=== PATIENT | male | born 1955 | race Caucasian/White ===

== ENCOUNTER 2017-10-12 10:27 | Inpatient (IN) | payer OTHER ==
[2017-10-12] MEDS ORDERED: ALBUTEROL NEB SOL 2.5MG/3ML 1 VIAL SOL NEB PRN (11:42)
[2017-10-12 13:14] LABS: POTASSIUM 4.6 mMol/L (3.5-5.1)
[2017-10-12] MEDS: ENOXAPARIN 80 MG SOL SC SCH ×2 (14:45→23:40)
[2017-10-12] MEDS: SODIUM CHLORIDE 0.9% FLUSH 10 ML SOL IV SCH ×3 (14:47→21:52)
[2017-10-12] MEDS: FUROSEMIDE 20mg SOL IV SCH (15:25)
[2017-10-12] MEDS: NOVOLOG FLEXPEN SC SCH ×2 (16:52→21:53)
[2017-10-12] MEDS: METFORMIN HYDROCHLORIDE 500 MG TAB PO SCH (21:52)
[2017-10-13] MEDS: SODIUM CHLORIDE 0.9% FLUSH 10 ML SOL IV SCH ×3 (05:23→20:51)
[2017-10-13] MEDS: NOVOLOG FLEXPEN SC SCH ×4 (06:01→20:52)
[2017-10-13 07:32] LABS: CALCIUM 8.7 mg/dl (8.5-10.1); POTASSIUM 4.5 mMol/L (3.5-5.1)
[2017-10-13] MEDS ORDERED: GLIPIZIDE 5 MG TAB PO SCH (09:00)
[2017-10-13] MEDS ORDERED: ATENOLOL 25 MG TAB PO SCH (09:00)
[2017-10-13] MEDS: METFORMIN HYDROCHLORIDE 500 MG TAB PO SCH ×2 (09:51→20:52)
[2017-10-13] MEDS: GLIPIZIDE 5 MG TAB PO SCH ×2 (09:52→19:21)
[2017-10-13] MEDS: FUROSEMIDE 20mg SOL IV SCH ×3 (09:57→16:18)
[2017-10-13] MEDS: ATORVASTATIN 10 MG TAB PO SCH (09:57)
[2017-10-13] MEDS: LISINOPRIL 20 MG TAB PO SCH (10:14)
[2017-10-13] MEDS: ATENOLOL 25 MG TAB PO SCH (10:14)
[2017-10-13] MEDS: AMLODIPINE 5 MG TAB PO SCH (10:14)
[2017-10-13] MEDS: ENOXAPARIN 80 MG SOL SC SCH ×2 (12:27→23:45)
[2017-10-13 20:51] VITALS: O2SAT 97
[2017-10-14] MEDS: SODIUM CHLORIDE 0.9% FLUSH 10 ML SOL IV SCH ×3 (06:28→12:17)
[2017-10-14] MEDS: NOVOLOG FLEXPEN SC SCH ×2 (06:29→11:51)
[2017-10-14 08:32] VITALS: BP 152/75; PULSE 65; RESP 16; TEMP 97.5
[2017-10-14] MEDS: LISINOPRIL 20 MG TAB PO SCH (08:40)
[2017-10-14] MEDS: ATORVASTATIN 10 MG TAB PO SCH (08:40)
[2017-10-14] MEDS: FUROSEMIDE 20mg SOL IV SCH ×2 (08:41→12:19)
[2017-10-14] MEDS: METFORMIN HYDROCHLORIDE 500 MG TAB PO SCH (08:41)
[2017-10-14] MEDS: AMLODIPINE 5 MG TAB PO SCH (08:41)
[2017-10-14] MEDS: ATENOLOL 25 MG TAB PO SCH (08:48)
[2017-10-14] MEDS ORDERED: GLIPIZIDE 5 MG TAB PO SCH (09:00)
[2017-10-14] MEDS ORDERED: PNEUMOCOCCAL VACCINE 0.5 ML SOL IM ONE (11:46)
[2017-10-14] MEDS: ENOXAPARIN 80 MG SOL SC SCH (12:19)
== END 2017-10-14 14:05 | disposition home or self-care (01) | DRG 293 ==
LOC: ACUTE CARE 10:56
PROVIDERS: ADMIT Family Medicine; ATTEND Family Medicine
DX: I50.9 Heart failure, unspecified (principal); I48.91 Unspecified atrial fibrillation; E11.9 Type 2 diabetes mellitus without complications
CPT/HCPCS: 36415; 80048; 80053; 82962; 90732; 93012; 93306; J1650; J1940; A9270-GY; G0008; J1815